=== PATIENT | female | born 1960 | race Caucasian/White ===

== ENCOUNTER 2017-01-26 15:35 | Emergency (ER) | payer BC ==
[2012-07-15 08:30] VITALS: BMI 47.3
== END 2017-01-26 17:55 | disposition home or self-care (01) ==
LOC: D.ER 15:35
DX: S83.92XA Sprain of unspecified site of left knee, initial encounter (principal); W19.XXXA Unspecified fall, initial encounter; Y93.89 Activity, other specified; Y92.89 Other specified places as the place of occurrence of the external cause; E11.9 Type 2 diabetes mellitus without complications; I10 Essential (primary) hypertension; E78.00 Pure hypercholesterolemia, unspecified; E03.9 Hypothyroidism, unspecified

== ENCOUNTER → 2017-02-19 08:53 | Outpatient (CLI) | payer BC ==
[2012-07-15 08:30] VITALS: BMI 47.3
== END | disposition home or self-care (01) ==
LOC: D.MAMMO 08:53
DX: Z12.31 Encounter for screening mammogram for malignant neoplasm of breast (principal)

== ENCOUNTER 2017-11-18 07:38 | Day surgery (SDC) | payer BC ==
[~2017-11-18] VITALS: Ht 157.5 cm; Wt 124.5 kg
--- NOTE | ~2017-11-18 | OP ---
PATIENT NAME: GRAZYNA ARMIJO MEDICAL RECORD: [id number] :64 LOCATION:D.OPS ADMISSION DATE: SURGEON: BAYRON TARIQ MD DATE OF OPERATION: 11/18/2017 PREOPERATIVE DIAGNOSES: 1. History of colon polyps. 2. Family history of colon cancer. POSTOPERATIVE DIAGNOSES: 1. History of colon polyps. 2. Family history of colon cancer. 3. One new colon polyp, sessile, 8 mm. PROCEDURES: 1. Total colonoscopy to cecum. 2. Hot biopsy forceps polypectomy times 1. SURGEON: Bayron Tariq MD INVESTIGATION OFFICER: None. BLOOD LOSS: Minimal. ANESTHESIA: IV sedation. COMPLICATIONS: None. The risks, possible complications, and alternatives to the procedure were explained to the patient. She elects to proceed. ENDOSCOPIC COURSE: The patient was conveyed to the endoscopy suite electively on 11/18/2017. The reason for the anesthesia staff being present during the procedure includes anxiety regarding the procedure. The patient was placed in the Wall position. A digital rectal examination was performed. The colonoscope was inserted through the anus. It was easily advanced to the cecum. The prep was adequate. I slowly withdrew the endoscope. I irrigated and aspirated extensively. A combination of normal imaging as well as narrow band imaging was utilized. One polyp was noted and was removed in its entirety utilizing the hot biopsy forceps polypectomy technique. A retroflexed view was obtained in the rectum. The pullback had been greater than an 18-minute pullback. I then unretroflexed the scope and removed it under direct vision. I will see the patient in my office in 2-3 weeks. I will plan for her next surveillance colonoscopy to take place in 3 years. TRANSINT:[id number] Voice Confirmation ID: [id number] DOCUMENT ID: [id number] OPERATIVE REPORT [id number] GRAZYNA ARMIJO BAYRON TARIQ MD at 1042 CC: [id number] DICTATION DATE: 11/18/17 1129 VASCULAR PHYSICIAN: 11/18/17 1138 [facility] 11/18/17 [place] [address]
--- NOTE | ~2017-11-18 | HP ---
PATIENT: GRAZYNA ARMIJO MEDICAL RECORD: [id number] ACCOUNT: [id number] LOCATION:[facility] : 64 ADMISSION DATE: 11/18/17 HISTORY AND PHYSICAL EXAMINATION CHIEF COMPLAINT: Colonoscopy. HISTORY OF PRESENT ILLNESS: The patient has had a history of colon polyps. Also, a family history of colon cancer. Her twin brother had colon cancer. She is to undergo colonoscopy. The risks, possible complications and alternatives to the procedure were explained to the patient. ALLERGIES: PENICILLIN, ASPIRIN, IBUPROFEN. HOME MEDICATIONS: Lopressor, Pravachol, Synthroid, Meloxicam, and Glucophage. SOCIAL HISTORY: Nonsmoker. PAST MEDICAL AND SURGICAL HISTORY: Hypercholesterolemia, hypertension, noninsulin-dependent diabetes mellitus, hypothyroidism on replacement therapy, history of hysterectomy, history of bilateral tubal ligation, history of cholecystectomy, history of tonsillectomy and adenoidectomy, history of colon polyps, history of morbid obesity, also gout. PHYSICAL EXAMINATION: GENERAL: The patient does not appear acutely ill. She does not appear chronically ill. VITAL SIGNS: Reviewed. The entire physical examination was performed in the presence of a female nurse. EARS: External ears appear normal. EYES: Extraocular movements are intact. NECK: Trachea is midline. CHEST: No intercostal retractions. PULMONARY: Nonlabored, no stridor. IMPRESSION: 1. Family history of colon cancer in a first degree relative. 2. History of colon polyps. PLAN: Will be surveillance colonoscopy. TRANSINT:[id number] Voice Confirmation ID: [id number] DOCUMENT ID: [id number] OMAR TARIQ MD at 1042 CC: MAR LOPEZ DO [id number] DICTATION DATE: 11/18/17 1054 CASHIER HOST/HOSTESS: 11/18/17 1114 [facility] 11/18/17 [place] [address]
[2017-11-18 08:14] LABS: BASOPHILS 0.6 % (0-2); EOSINOPHILS 1.9 % (0-7); HEMATOCRIT 48.5 % (36.0-48.0); HEMOGLOBIN 16.4 g/dL (12-16); LYMPHOCYTES 40.2 % (15-50); MCH 30.3 pg (26.0-34.0); MCHC 33.8 g/dL (31.0-37.0); MCV 89.5 fL (80.0-100.0); MEAN PLATELET VOLUME 10.1 fL (7.4-10.4); MONOCYTES 8.6 % (2-11); NEUTROPHILS 48.7 % (40-80); PLATELET COUNT 201 10x3/uL (130-400); RBC 5.42 10x6/uL (4.00-5.40); RDW 12.8 % (11.5-14.5); WBC 5.3 10x3/uL (4.8-10.8)
[2017-11-18] MEDS ORDERED: LEVOTHYROXINE75 MCG PO (08:29)
[2017-11-18] MEDS ORDERED: GLUCOPHAGE500 MG PO (08:29)
[2017-11-18] MEDS ORDERED: PRAVASTATIN SOD10 MG (08:30)
[2017-11-18] MEDS ORDERED: MELOXICAM TAB 15M (08:31)
[2017-11-18] MEDS ORDERED: METOPROLOL TART50 MG (08:32)
[2017-11-18 08:41] VITALS: BP 134/85; Ht 157.5 cm; Wt 124.5 kg
[2017-11-18 08:44] LABS: ANION GAP 13.4 mmol/L (8-16); CALCIUM 9.7 mg/dL (8.5-10.1); CARBON DIOXIDE 27.7 mmol/L (21.0-32.0); CREATININE - SERUM 0.9 mg/dL (0.6-1.3); POTASSIUM - SERUM 4.1 mmol/L (3.5-5.1)
== END 2017-11-18 12:05 | disposition home or self-care (01) ==
LOC: D.OPS 07:38
PROVIDERS: Anesthesiology
DX: K63.5 Polyp of colon (principal); Z80.0 Family history of malignant neoplasm of digestive organs; I10 Essential (primary) hypertension; E11.9 Type 2 diabetes mellitus without complications; E03.9 Hypothyroidism, unspecified; E66.01 Morbid (severe) obesity due to excess calories; M10.9 Gout, unspecified; Z68.43 Body mass index [BMI] 50.0-59.9, adult; Z01.812 Encounter for preprocedural laboratory examination

== ENCOUNTER 2018-02-23 08:00 | Outpatient (CLI) | payer OTHER ==
[2017-11-18 08:41] VITALS: BMI 50.2
[~2018-02-23 08:00] MED LIST: GLUCOPHAGE500 MG PO; LEVOTHYROXINE75 MCG PO; MELOXICAM TAB 15M; METOPROLOL TART50 MG; PRAVASTATIN SOD10 MG
== END 2018-02-23 11:54 | disposition home or self-care (01) ==
LOC: D.MAMMO 08:00
DX: Z12.31 Encounter for screening mammogram for malignant neoplasm of breast (principal)